=== PATIENT | female | born 1960 | race Caucasian/White ===

== ENCOUNTER 2021-10-22 09:45 | Emergency (ER) | payer OTHER ==
[~2021-10-22] VITALS: Ht 170.2 cm; Wt 79.8 kg
[2021-10-22 10:34] LABS: Basophils # (auto) 0 10 ^3/uL (0-0.2); Basophils % (auto) 0.6 % (0.0-2.0); Eosinophils # (auto) 0.1 10 ^3/uL (0-0.8); Eosinophils % (auto) 1.8 % (0.0-7.0); Hematocrit 42.2 % (36.0-46.0); Hemoglobin 13.8 g/dL (12.2-16.2); Lymphocytes # (auto) 1.6 10 ^3/uL (0.4-5.4); Lymphocytes % (auto) 27.1 % (10.0-50.0); Mean Corpuscular Hemoglobin 26.8 pg (28.0-32.0); Mean Corpuscular Hgb Conc. 32.8 g/dL (32.0-36.0); Mean Corpuscular Volume 81.6 fL (80.0-100.0); Monocytes # (auto) 0.6 10 ^3/uL (0-1.3); Monocytes % (auto) 10.5 % (0.0-12.0); Neutrophils # (auto) 3.5 10 ^3/uL (1.6-8.6); Red Blood Cells 5.17 10^6/uL (4.0-5.20); Red Cell Distribution Width 13.7 % (11.8-14.3); White Blood Cell 5.8 10^3/uL (4.4-10.8)
[2021-10-22] MEDS ORDERED: ASPirin 81 mg TAB PO ONE (10:45)
[2021-10-22 10:50] LABS: Potassium 3.9 mmol/L (3.5-5.1)
[2021-10-22 10:57] LABS: Albumin 4.1 g/dL (3.4-5.0); BUN/Creatinine Ratio 20.4; Bilirubin, Total 0.5 mg/dL (0.2-1.0); Calcium 9.3 mg/dL (8.5-10.1)
[2021-10-22 11:09] LABS: Urine Bacteria FEW /hpf (None Seen); Urine Blood Negative /uL (Negative); Urine Specific Gravity 1.015 (1.001-1.035); Urine WBC 1 /hpf (0 - 5)
[2021-10-22 13:24] VITALS: BP 132/84
== END 2021-10-22 13:09 | disposition home or self-care (01) ==
LOC: ER 09:45
DX: R07.89 Other chest pain (principal); Z90.89 Acquired absence of other organs; Z98.51 Tubal ligation status
CPT/HCPCS: 36415; 71045; 80053; 81001; 83735; 84484; 85025; 85379; 93005